=== PATIENT | female | born 1960 | race African-American/Black ===

== ENCOUNTER 2019-06-25 18:56 | Emergency (ER) | payer OTHER ==
[~2019-06-25] VITALS: Ht 167.6 cm; Wt 65.8 kg
[2019-06-25 19:48] VITALS: BP 146/90
[2019-06-25 19:54] LABS: BILIRUBIN,URINE NEGATIVE (NEG); CLARITY,URINE CLEAR; COLOR,URINE YELLOW; NITRITE,URINE NEGATIVE (NEG); PROTEIN,URINE NEGATIVE (NEG-TRACE); UROBILINOGEN,URINE 0.2 mg/dL (0.2 mg/dL)
[2019-06-25 20:02] LABS: BACTERIA,URINE FEW /HPF (0-FEW); RBC,URINE OCC /HPF (0-2); SQUAMOUS EPITHELIAL CELL,UR OCC /LPF
--- NOTE | 2019-06-25 20:06 | PHYS DOC ---
Past Medical History Past Medical History: Anxiety, Constipation, Depression, GERD, High Jayde sterol, Hypertension, Other Additional Past Medical Histor: muscle spasms, seasonal allergies Past Surgical History: Tubal ligation Alcohol Use: None Drug Use: None Adult General Chief Complaint Chief Complaint: PAIN ON URINATION [place] [employer] HPI Patient is a 59 year old female with history of hypertension, dyslipidemia, GERD, anxiety and depression who presents with complaint of problems with urination. Patient complaining of intermittent episodes of painful urination for the last 2 months that getting better dictating more liquid for the last few days. Patient complaining of radiation of pain to her back and rated her pain as a moderate pain. Patient also complaining of white vaginal discharge for the same time without vaginal bleeding patient also complaining of epigastric pain 2 months and states she was at [facility] and treated for GERD without improvement of her pain. Patient is a poor historian and complaining of multiple chronic problems. She denies suicidal and homicidal ideation. Patient's daughter states she called her primary care physician regarding her urinary symptom recommended to come to emergency room for evaluation of urinary tract infection. Review of Systems Review of Systems Constitutional: Denies fever or chills [] Eyes: Denies change in visual acuity, redness, or eye pain [] HENT: Denies nasal congestion or sore throat [] Respiratory: Denies cough or shortness of breath [] Cardiovascular: No additional information not addressed in HPI [] GI: Denies nausea, vomiting, bloody stools or diarrhea, reports abdominal pain [] : Denies hematuria, reports dysuria Musculoskeletal: Denies back pain or joint pain [] Integument: Denies rash or skin lesions [] Neurologic: Denies headache, focal weakness or sensory changes [] Endocrine: Denies polyuria or polydipsia [] All other systems were reviewed and found to be within normal limits, except as documented in this note. Allergies Allergies Allergies Coded Allergies Type Severity Reaction Last Updated Verified gabapentin Allergy Intermediate 06/25/19 Yes Physical Exam Physical Exam Constitutional: Well nourished, no acute distress, non-toxic appearance. [] HENT: Normocephalic, atraumatic, bilateral external ears normal, oropharynx moist, no oral exudates, nose normal. [] Eyes: PERRLA, EOMI, conjunctiva normal, no discharge. [] Neck: Normal range of motion, no tenderness, supple, no stridor. [] Cardiovascular:Heart rate regular rhythm, no murmur [] Lungs & Thorax: Bilateral breath sounds clear to auscultation [] Abdomen: Bowel sounds normal, soft, no tenderness, no masses, no pulsatile masses. Vaginal exam in present of pack master showed normal external genitalia, no vaginal bleeding or discharge, no adnexal tenderness or masses. Skin: Warm, dry, no erythema, no rash. [] Back: No tenderness, no CVA tenderness. [] Extremities: No tenderness, no cyanosis, no clubbing, ROM intact, no edema. [] Neurologic: Alert and oriented X 3, normal motor function, normal sensory function, no focal deficits noted. [] Psychologic: Affect depressed, mood normal. [] Current Patient Data Vital Signs Vital Signs Date Time Temp Pulse Resp B/P (MAP) Pulse Ox O2 Delivery O2 Flow Rate FiO2 06/25/19 19:10 97.9 102 20 195/109 (137) 98 Room Air 97.9 Lab Values Laboratory Tests Test 06/25/19 19:10 Urine Color Yellow Urine Clarity Clear Urine pH 6.0 Urine Specific Bent <=1.005 Urine Protein Negative mg/dL (NEG-TRACE) Urine Glucose (UA) Negative mg/dL (NEG) Urine Ketones (Stick) 15 mg/dL (NEG) Urine Blood Trace (NEG) Urine Nitrite Negative (NEG) Urine Bilirubin Negative (NEG) Urine Urobilinogen Dipstick 0.2 mg/dL (0.2 mg/dL) Urine Leukocyte Esterase Large (NEG) Urine RBC Occ /HPF (0-2) Urine WBC 11-20 /HPF (0-4) Urine Squamous Epithelial Cells Occ /LPF Urine Bacteria Few /HPF (0-FEW) Urine Mucus Slight /LPF Microbiology 06/25/19 Wet Prep - Final, Complete EKG EKG [] Radiology/Procedures Radiology/Procedures [] Course & Med Decision Making Course & Med Decision Making Pertinent Labs reviewed. (See chart for details) Evaluation of patient in ER showed 59-year-old female patient with multiple chronic complaint including urinary dysuria, epigastric pain and GERD symptoms, vaginal discharge. Patient had blood pressure of 195 at arrival to ER that decreased to 140s over 80s without treatment. She was depressed but denies suicidal and homicidal ideation. Labs showed UTI without bacterial vaginitis or yeast or trichomoniasis. Patient was advised to follow up with her primary care physician regarding chronic problem and continue home blood pressure medication. Prescription for Keflex and Pyridium was given. Dragon Disclaimer Manuelon Disclaimer This electronic medical record was generated, in whole or in part, using a voice recognition dictation system. Departure Departure Impression: Primary Impression: Urinary tract infection Additional Impression: Dysuria Disposition: HOME, SELF-CARE (at 2027) Condition: STABLE Referrals: UNKNOWN PCP NAME (PCP) Patient Instructions: Dysuria, Urinary Tract Infection Additional Instructions: Drink plenty of liquids Follow-up with your primary care physician in 3-5 days Return to ER if not getting better Scripts Phenazopyridine Hcl (PYRIDIUM) 100 Mg Tablet 100 MG PO TID for dysuria, #10 TAB Prov: TALI WISE MD 06/25/19 Cephalexin (KEFLEX) 500 Mg Capsule 1 CAP PO Q8HRS, #21 CAP 0 Refills Prov: TALI WISE MD 06/25/19 Problem Qualifiers Primary Impression: Urinary tract infection Urinary tract infection type: site unspecified Hematuria presence: without hematuria Qualified Codes: N39.0 - Urinary tract infection, site not specified TALI WISE MD Jun 25, 2019 20:06
[2019-06-25] MEDS ORDERED: CEPH-264 PO (20:29)
[2019-06-25] MEDS ORDERED: PHEN100T82 PO (20:29)
[2019-06-30 17:09] LABS: GC PROBE Negative (Negative)
== END 2019-06-25 20:39 | disposition home or self-care (01) ==
LOC: ER 18:56
DX: N39.0 Urinary tract infection, site not specified (principal); N89.8 Other specified noninflammatory disorders of vagina; K21.9 Gastro-esophageal reflux disease without esophagitis; E78.00 Pure hypercholesterolemia, unspecified; I10 Essential (primary) hypertension; Z98.51 Tubal ligation status; Z88.8 Allergy status to other drugs, medicaments and biological substances
CPT/HCPCS: 81001; 87086; 87491; 87591; 99284; Q0111